=== PATIENT | female | born 1975 | race Caucasian/White ===

== ENCOUNTER → 2018-11-16 | Outpatient (CLI) | payer BC ==
[~2018-11-16] MED LIST: BUPR300T4 PO; NEOMY/POLYMYXIN B GU IRR. 1 ML ONE; THROMBIN 5,000 UNIT VIAL TP ONE; VALA500T4 PO
[2018-11-16 12:10] LABS: BASOPHILS # (AUTO) 0.02 x10^3/uL (0-0.1); BASOPHILS % (AUTO) 0 % (0-1); EOSINOPHILS # (AUTO) 0.04 x10^3/uL (0-0.4); EOSINOPHILS % (AUTO) 1 % (1-7); LYMPHOCYTES # (AUTO) 1.35 x10^3/uL (1-3.4); LYMPHOCYTES % (AUTO) 24 % (22-44); MD NO; MEAN CORPUSCULAR HEMOGLOBIN 30.8 pg (27.0-34.8); MEAN CORPUSCULAR HGB CONC 33.5 g/dL (32.4-35.8); MEAN PLATELET VOLUME 9.2 fL (7.4-10.4); MONOCYTES # (AUTO) 0.31 x10^3/uL (0.2-0.8); MONOCYTES % (AUTO) 6 % (2-9); NEUTROPHILS # (AUTO) 3.88 x10^3/uL (1.8-6.8); NEUTROPHILS % (AUTO) 69 % (42-75); PLATELET COUNT 206 x10^3/uL (130-400); RED BLOOD COUNT 4.41 x10^6/uL (3.82-5.3)
== END | disposition home or self-care (01) ==
LOC: STAR 10:50
PROVIDERS: ATTEND Obstetrics & Gynecology Female Pelvic Medicine and Reconstructive Surgery
DX: Z01.818 Encounter for other preprocedural examination (principal); N81.10 Cystocele, unspecified; N81.6 Rectocele
CPT/HCPCS: 36415; 71046; 84703; 85025

== ENCOUNTER 2018-11-22 05:32 | Day surgery (SDC) | payer BC, OTHER ==
[~2018-11-22] VITALS: Ht 165.1 cm; Wt 78.6 kg
[~2018-11-22 05:32] MED LIST changes: -NEOMY/POLYMYXIN B GU IRR. 1 ML ONE; -THROMBIN 5,000 UNIT VIAL TP ONE
[2018-11-22] MEDS ORDERED: LACTATED RINGERS 1,000 ML IV SCH ×2 (06:17→11:12)
[2018-11-22 06:27] LABS: HCG UR SG 1.021 (1.003-1.030)
[2018-11-22] MEDS ORDERED: FENTANYL PF 250 MCG/5ML ONE (06:38)
[2018-11-22] MEDS ORDERED: MIDAZOLAM 1 MG/ML, 2ML ONE (06:38)
[2018-11-22 06:40] VITALS: BP 149/96
[2018-11-22] MEDS ORDERED: BUPIVACAINE/PF 0.25% ONE ×2 (06:41→11:22)
[2018-11-22] MEDS ORDERED: EPINEPHRINE 1 MG/ML, 1ML ONE (06:42)
[2018-11-22] MEDS ORDERED: GLYCOPYRROLATE 0.2MG/1ML, 5ML ONE (06:47)
[2018-11-22] MEDS ORDERED: DEXAMETHASONE 4 MG/ML, 1ML ONE (06:47)
[2018-11-22] MEDS ORDERED: ONDANSETRON 2MG/ML, 2ML ONE (06:47)
[2018-11-22] MEDS ORDERED: ROCURONIUM 10MG/ML,5ML ONE (06:47)
[2018-11-22] MEDS ORDERED: NEOSTIGMINE 1 MG/ML, 10ML ONE (06:47)
[2018-11-22] MEDS ORDERED: PROPOFOL 10 MG/ML, 20ML ONE (06:47)
[2018-11-22] MEDS ORDERED: CEFOTETAN PMX 2GM/50ML 50 ML ONE (06:48)
[2018-11-22] MEDS ORDERED: GABAPENTIN 300 MG CAPSULE ONE (07:08)
[2018-11-22] MEDS ORDERED: SCOPOLAMINE PATCH, 1.5MG PATCH.TD72 TD ONE ×2 (07:09→07:30)
[2018-11-22] MEDS ORDERED: ACETAMINOPHEN 500 MG TABLET ONE (07:09)
[2018-11-22] MEDS ORDERED: GABAPENTIN 300 MG CAPSULE PO ONE (07:30)
[2018-11-22] MEDS ORDERED: LABETALOL 5MG/ML, 20ML IV PRN (07:30)
[2018-11-22] MEDS ORDERED: HYDROmorphone 2 MG/ML, 1ML IVPush PRN (07:30)
[2018-11-22] MEDS ORDERED: ACETAMINOPHEN 500 MG TABLET PO ONE (07:30)
[2018-11-22] MEDS ORDERED: MEPERIDINE/PF 25MG/0.5ML IVPush PRN (07:30)
[2018-11-22] MEDS ORDERED: PROMETHAZINE 12.5 MG SUPP PR PRN (07:30)
[2018-11-22] MEDS ORDERED: MORPHINE SULFATE 4 MG/ML, 1ML IVPush PRN (07:30)
[2018-11-22] MEDS ORDERED: PROMETHAZINE 25 MG/ML, 1ML IV PRN (07:30)
[2018-11-22] MEDS ORDERED: OXYcodone 5 MG/5 ML ORAL.SOL UDC PO PRN (07:30)
[2018-11-22] MEDS ORDERED: hydrALAzine 20 MG/ML, 1ML IV PRN (07:30)
[2018-11-22] MEDS ORDERED: FENTANYL PF 100 MCG/2ML IV PRN (07:30)
[2018-11-22] MEDS ORDERED: ONDANSETRON 2MG/ML, 2ML IV PRN (07:30)
[2018-11-22] MEDS ORDERED: ONDANSETRON ODT 8 MG PO PRN (07:30)
[2018-11-22] MEDS ORDERED: PROMETHAZINE 25 MG/ML, 1ML IM PRN ×2 (07:30)
[2018-11-22] MEDS ORDERED: PROMETHAZINE 25 MG SUPP PR PRN (07:30)
[2018-11-22] MEDS ORDERED: KETOROLAC 30 MG/1 ML ONE (08:29)
[2018-11-22] MEDS ORDERED: FENTANYL PF 100 MCG/2ML ONE (09:08)
[2018-11-22] MEDS ORDERED: OXYcodone/APAP 5/325MG TABLET PO PRN (11:30)
[2018-11-22] MEDS ORDERED: OXYcodone 5 MG/5 ML ORAL.SOL UDC ONE (11:30)
[2018-11-22] MEDS ORDERED: HYDROmorphone 2 MG/ML, 1ML ONE (11:30)
[2018-11-22] MEDS ORDERED: PROMETHAZINE 25 MG SUPP PR ONE (11:30)
[2018-11-22] MEDS ORDERED: ONDANSETRON 2MG/ML, 2ML IVPush PRN (11:30)
[2018-11-22] MEDS ORDERED: IBUPROFEN 600 MG TABLET PO PRN (11:30)
[2018-11-22] MEDS ORDERED: MEPERIDINE/PF 25MG/ML,1ML ONE (11:46)
== END 2018-11-22 19:50 | disposition home or self-care (01) ==
LOC: OUT 05:32
PROVIDERS: ATTEND Obstetrics & Gynecology Female Pelvic Medicine and Reconstructive Surgery
DX: D25.9 Leiomyoma of uterus, unspecified (principal); N81.4 Uterovaginal prolapse, unspecified; N92.0 Excessive and frequent menstruation with regular cycle; N39.3 Stress incontinence (female) (male); N32.81 Overactive bladder; F32.9 Major depressive disorder, single episode, unspecified; F41.9 Anxiety disorder, unspecified; Z98.890 Other specified postprocedural states; Z88.0 Allergy status to penicillin
CPT/HCPCS: 57288; 57425; 58542; 81025; 88307; C1771; C1781; J0171; J1100; J1170; J1885; J2175; J2250; J2405; J2704; J2710; J3010; J3490; J7120